=== PATIENT | female | born 1955 | race Caucasian/White ===

== ENCOUNTER 2018-07-09 10:35 | Day surgery (SDC) | payer OTHER ==
[2018-07-02 17:38] VITALS: BMI 51.0
[~2018-07-09 10:35] MED LIST: ALPRAZolam 0.25 MG TAB PO PRN; ASPIRIN 325 MG TAB PO ONE; NITROGLYCERIN SL TABS 0.4 MG TAB SUBLINGUAL PRN; SODIUM CHLORIDE 0.9% 1,000 ML in EMPTY BAG 1 BAG IV ONE
[2018-07-09 11:58] LABS: Basophils # (A) 0.1 k/uL (0-0.2); Basophils % (A) 1 %; Eosinophils # (A) 0.3 k/uL (0-0.7); Eosinophils % (A) 5 %; HCT 41.5 % (34.0-46.0); HGB 13.5 gm/dL (11.4-16.0); Lymphocytes # (A) 2.2 k/uL (1.0-4.8); Lymphocytes % (A) 38 %; MCH 30.3 pg (25.0-35.0); MCHC 32.5 g/dL (31.0-37.0); MCV 93.2 fL (80.0-100.0); Mean Platelet Volume 6.4; Monocytes # (A) 0.5 k/uL (0-1.0); Monocytes % (A) 9 %; Neutrophils # (A) 2.5 k/uL (1.3-7.7); Neutrophils % (A) 44 %; Platelet Count 281 k/uL (150-450); RBC 4.46 m/uL (3.80-5.40); RDW 13.5 % (11.5-15.5); WBC 5.7 k/uL (3.8-10.6)
[2018-07-09 12:05] LABS: Anion Gap 5 mmol/L; Blood Urea Nitrogen 18 mg/dL (7-17); Calcium 9.4 mg/dL (8.4-10.2); Carbon Dioxide 29 mmol/L (22-30); Chloride 106 mmol/L (98-107); Glucose 151 mg/dL (74-99); Potassium 4.7 mmol/L (3.5-5.1); Sodium 140 mmol/L (137-145)
[2018-07-09] MEDS ORDERED: SODIUM CHLORIDE 0.9% 1,000 ML IV ONE (12:39)
[2018-07-09] MEDS ORDERED: MIDAZOLAM 2 MG/2 ML VIAL IVP ONE (12:53)
[2018-07-09] MEDS ORDERED: LIDOCAINE 1% INJ 10MG/ML (20 ML MDV) SQ ONE (12:56)
[2018-07-09] MEDS: VERAPAMIL SYRINGE (5 MG/10 ML) INTRAARTER ONE ×2 (12:57→13:07)
[2018-07-09] MEDS ORDERED: HEPARIN SODIUM 1,000 UN/ML (10ML VL) IV ONE (13:01)
[2018-07-09] MEDS ORDERED: fentaNYL (PF) 50 MCG/ML 2 ML AMP IV ONE (13:01)
[2018-07-09] MEDS ORDERED: IOPAMIDOL-370 125ML BTL INJ ONE (13:07)
[2018-07-09] MEDS ORDERED: RX INFO: IV CONTRAST WAS GIVEN 1 EACH MISC MISCELLANE PRN (13:14)
[2018-07-09] MEDS ORDERED: SODIUM CHLORIDE 0.9% 1,000 ML IV SCH (13:15)
--- NOTE | 2018-07-09 16:30 | LTR ---
July 09, [address] Cox: Ms. Jaja Mejia underwent a heart catheterization and that revealed normal coronaries. I want to thank you for allowing me to participate in her care and please do not hesitate to call if you have any question or concern. MMPATRICKL / IJN: [id number] /
[2018-07-09 17:06] LABS: Glucose,Whole Blood 153 mg/dL (75-99)
--- NOTE | 2018-07-09 17:21 | CC ---
CARDIAC CATHETERIZATION REPORT DATE OF SERVICE: 07/09/2018 PERFORMING PHYSICIAN: Favian Odell MD, servicer. PROCEDURES PERFORMED: 1. Selective right and left coronary angiogram. 2. Left heart catheterization. INDICATION: This is a pleasant 62-year-old female patient from [place] who is diabetic and also does have dyslipidemia and significant family history of coronary artery disease. She was experiencing exertional dyspnea. She underwent a myocardial perfusion imaging stress test at [place] and that revealed lateral ischemia. Because of that, heart catheterization was recommended. APPROACH: Right radial artery. COMPLICATIONS: None. LEVEL OF SEDATION: Moderate with sedation length of 15 minutes. PROCEDURE DESCRIPTION: After obtaining informed consent, the patient was brought to the cardiac fish hatchery laborer. The right radial artery was cannulated using micropuncture technique. The micropuncture wire passed easily. Then I placed a 6-Armenian sheath in the right radial artery. After that I gave the patient 2 mg of Verapamil IA and 10,000 units of heparin IV. Subsequently I did selective right and left coronary angiogram using JR4 and JL3.5 catheters. Left heart catheterization was performed using the JR4 catheter which flipped into the LV and then I did pullback across the aortic valve after I flushed the catheter. The procedure was completed without any complication. SELECTIVE CORONARY ANGIOGRAM: 1. The right coronary artery is a large-caliber vessel and it is a dominant vessel. It is angiographically normal. It bifurcates distally into PDA and PLV branches. Both are angiographically normal. 2. The left main is angiographically normal. It bifurcates into left circumflex and left anterior descending artery. 3. The left circumflex is a large-caliber vessel. It is a non-dominant vessel. The proximal circumflex is angiographically normal. It gives rise to a large OM branch which seems to be angiographically normal. Then the circumflex continues after that as a medium-caliber vessel in the AV groove. 4. The left anterior descending artery, LAD, appeared to be angiographically normal. It gives rise to a large diagonal branch which seems to be angiographically normal. The mid LAD appeared to be angiographically normal and the LAD distally appeared to be normal. The LAD in the mid portion has a segment of myocardial bridging. HEMODYNAMICS: The left ventricular end-diastolic pressure was 22 mmHg. Mild gradient was seen across the aortic valve. CONCLUSION: 1. Normal coronary angiogram. 2. 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 3. Elevated left ventricular end-diastolic pressure. POST-PROCEDURE MANAGEMENT: 1. Maximize medical treatment. 2. Follow up with the patient. MARIEL / ALBERTO: [id number] /
[2018-07-09 18:14] VITALS: BP 134/69; RESP 18
== END 2018-07-09 17:50 | disposition home or self-care (01) ==
LOC: CATHCVL 10:35
PROVIDERS: ATTEND Internal Medicine Interventional Cardiology
DX: Q24.5 Malformation of coronary vessels (principal); I35.1 Nonrheumatic aortic (valve) insufficiency; R06.00 Dyspnea, unspecified; R94.39 Abnormal result of other cardiovascular function study; E78.5 Hyperlipidemia, unspecified; E11.9 Type 2 diabetes mellitus without complications; E66.3 Overweight; Z68.43 Body mass index [BMI] 50.0-59.9, adult
CPT/HCPCS: 93458; 80048; 85025; C1894; J2250; J2001; J3010; J1644; Q9967